=== PATIENT | female | born 1995 | race Caucasian/White ===

== ENCOUNTER 2018-01-12 10:37 | Emergency (ER) | payer OTHER ==
[~2018-01-12] VITALS: Ht 170.2 cm; Wt 144.2 kg
[2018-01-12 10:46] VITALS: Ht 170.2 cm; Wt 144.2 kg
[2018-01-12 13:08] LABS: BASOPHIL % 0.3 % (0-2)
[2018-01-12 13:33] LABS: PLATELET COUNT 457 x10^3mcL (130-400); RED CELL DISTRIBUTION WIDTH 15.9 % (11.5-14.5)
[2018-01-12 14:01] LABS: microscopic required? YES; urine erythrocyte 2+ (NEGATIVE)
[2018-01-12 17:11] VITALS: BP 120/71
== END 2018-01-12 17:11 | disposition home or self-care (01) ==
LOC: ED 10:37
PROVIDERS: Emergency Medicine
DX: O20.0 Threatened abortion (principal); O99.211 Obesity complicating pregnancy, first trimester
CPT/HCPCS: 36415; Q0092